=== PATIENT | male | born 2000 | race African-American/Black ===

== ENCOUNTER 2024-09-17 11:45 | Emergency (ER) | payer SELFPAY ==
[2024-09-17 12:03] VITALS: BP 118/72; PULSE 74; RESP 20; TEMP 98.5; BMI 22.8
== END 2024-09-17 14:36 | disposition home or self-care (01) ==
LOC: JERFT 12:47
DX: J10.1 Influenza due to other identified influenza virus with other respiratory manifestations (principal); J06.9 Acute upper respiratory infection, unspecified; M79.10 Myalgia, unspecified site; R68.83 Chills (without fever); R05.9 Cough, unspecified; Z20.822 Contact with and (suspected) exposure to COVID-19
CPT/HCPCS: 0241U-QW; 99283-25